=== PATIENT | male | born 1980 | race American Indian/Alaskan Native ===

== ENCOUNTER 2018-09-12 20:39 | Emergency (ER) | payer SELFPAY ==
[2018-09-12 20:55] VITALS: RESP 18; TEMP 98
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
[2018-09-12] MEDS ORDERED: Lidocaine 1% 5ml Abboject ONE (22:03)
[2018-09-12] MEDS ORDERED: TDAP Vaccine 0.5 mL Syr IM ONE (22:13)
[2018-09-12 22:52] LABS: ACETAMINOPHEN < 10.0 ug/ml (10.0-20.0); HEMOGLOBIN 14.4 g/dL (14.0-18.0); MEAN CELL VOLUME 92.6 fl (80.0-105.0); MEAN CORPUSCULAR HEMOGLOBIN 30.4 pg (25.0-35.0); MEAN CORPUSCULAR HGB CONC 32.8 g/dl (31.0-37.0); RBC 4.74 10^6/uL (3.5-6.1); RED CELL DISTRIBUTION WIDTH 13.2 % (11.5-14.5); SALICYLATE < 1 mg/dL (2.0-20.0); WHITE BLOOD COUNT 10.5 10^3/uL (4.5-11.0)
[2018-09-12 22:53] LABS: BASO # 0.02 K/mm3 (0.0-2.0); BASO % 0.2 % (0.0-3.0); EOS # 0.1 (0.0-0.7); EOS % 0.6 % (1.5-5.0); GRAN # 7.07 (1.4-6.5); GRAN % 67.3 % (50.0-68.0); LYMPH % 18.6 % (22.0-35.0); MEAN PLATELET VOLUME 9.9 fl (7.0-11.0); MONO # 1.4 (0.1-0.6); MONO % 13.3 % (1.0-6.0)
[2018-09-12 22:54] LABS: ALB/GLOB RATIO 1.3 (1.1-1.8); ALBUMIN 3.8 g/dL (3.0-4.8); ALT/SGPT 64 U/L (7-56); AST/SGOT 72 U/L (17-59); BLOOD UREA NITROGEN 23 mg/dL (7-21); CALCIUM 8.9 mg/dL (8.4-10.5); GFR NON-AFRICAN AMERICAN > 60
[2018-09-13 03:28] VITALS: BP 130/79; PULSE 72; O2SAT 98
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
--- NOTE | 2018-09-13 09:45 | CT ---
Date of service: 09/13/2018 PROCEDURE: CT Cervical Spine without contrast HISTORY: trauma r/o fracture COMPARISON: None available. TECHNIQUE: Axial computed tomography images were obtained of the cervical spine without the use of intravenous contrast. Coronal and sagittal reformatted images were created and reviewed. Radiation dose: Total exam DLP = 513.83 mGy-cm. This CT exam was performed using one or more of the following dose reduction techniques: Automated exposure control, adjustment of the mA and/or kV according to patient size, and/or use of iterative reconstruction technique. FINDINGS: VERTEBRAE: No fracture. Normal alignment. No destructive bony lesion. DISCS/SPINAL CANAL/NEURAL FORAMINA: No significant central canal or neural foraminal stenosis. Discs heights are grossly preserved. PARASPINAL SOFT TISSUES: Unremarkable. OTHER FINDINGS: The report concurs with the preliminary [facility] report IMPRESSION: Unremarkable CT of the cervical spine.
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
--- NOTE | 2018-09-13 14:37 | CARD ---
APPROVED REPORT Date of service: 09/12/2018 EKG Measurement Heart [id number] <Conclusion> Normal sinus rhythm Normal Electrocardiogram
== END 2018-09-13 03:28 | disposition home or self-care (01) ==
LOC: ED 20:39
DX: S01.01XA Laceration without foreign body of scalp, initial encounter (principal); Y04.8XXA Assault by other bodily force, initial encounter
CPT/HCPCS: 12002; 70450; 70486; 71101; 72125; 73030; 73060; 73080; 73130; 80053; 85025; 90471; 90715; 93005; 99283; G0480

== ENCOUNTER 2018-09-24 14:15 | Emergency (ER) | payer SELFPAY ==
[2018-09-24 14:48] VITALS: BP 122/70; PULSE 100; RESP 19; TEMP 98.6; O2SAT 96
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
== END 2018-09-24 15:02 | disposition left against medical advice (07) ==
LOC: ED 14:15
DX: S01.01XD Laceration without foreign body of scalp, subsequent encounter (principal); Y04.8XXD Assault by other bodily force, subsequent encounter